=== PATIENT | female | born 2000 | race African-American/Black ===

== ENCOUNTER 2024-08-18 16:04 | Emergency (ER) | payer OTHER, MEDICAID ==
[~2024-08-18] VITALS: Ht 170.2 cm; Wt 73.0 kg
[2024-08-18 16:06] VITALS: O2SAT 98
[2024-08-18] MEDS: FAMOTIDINE 20MG/2ML VIAL IV ONE (16:20)
[2024-08-18] MEDS: DEXAMETHASONE 10 MG/ML VIAL IV ONE (16:20)
[2024-08-18] MEDS: DIPHENHYDRAMINE 50MG/ML VIAL IV ONE (16:20)
[2024-08-18 18:21] VITALS: TEMP 37.11408
[2024-08-18 20:00] VITALS: BP 107/83; PULSE 96; RESP 22; O2SAT 99
== END 2024-08-18 20:00 | disposition home or self-care (01) ==
LOC: ER 16:04
DX: T78.2XXA Anaphylactic shock, unspecified, initial encounter (principal); Z98.890 Other specified postprocedural states; X58.XXXA Exposure to other specified factors, initial encounter
CPT/HCPCS: 96374; 96375; 99285; J1100; J1200; J3490; Z7610